=== PATIENT | female | born 1970 | race Two or more races ===

== ENCOUNTER 2022-12-25 00:18 | Emergency (ER) | payer OTHER ==
[~2022-12-25] VITALS: Ht 167.6 cm; Wt 70.8 kg
[2022-12-25] MEDS ORDERED: PLAQUENIL (00:58)
[2022-12-25] MEDS ORDERED: [UNRECOGNIZED DRUG - OTHER] (00:58)
[2022-12-25 01:40] LABS: URINE APPEARANCE Clear; URINE BILIRRUBIN Small (NEGATIVE); URINE BLOOD Large; URINE COLOR Orange; URINE GLUCOSE Negative (NEGATIVE); URINE LEUKOCYTE Moderate; URINE NITRATE Positive; URINE PROTEIN 30 (NEGATIVE)
[2022-12-25 01:43] LABS: URINE BACTERIA 293.4 uL (0.0-1933); URINE EPITHELIAL CELLS 30.9 uL (0.0-38.8); URINE RBC 61.9 uL (0.0-20.8); URINE WBC 426.5 uL (0.0-23.2)
[2022-12-25 03:18] LABS: HEMATOCRIT 41.7 % (36.0-45.00); HEMOGLOBIN 14.2 g/dL (12.0-15.00); MEAN CELL VOLUME 89.9 fL (80.00-100.00); MEAN CORPUSCULAR HEMOGLOBIN 30.5 pg (27.00-32.0); PLATELET COUNT 251 K/uL (150-450); RED BLOOD COUNT 4.64 M/uL (4.00-6.00); RED CELL DISTRIBUTION WIDTH 13.5 % (11.5-14.5)
[2022-12-25] MEDS ORDERED: ONDANSETRON ODT4 MG PO (04:36)
[2022-12-25] MEDS ORDERED: PEPCID40 MG PO (04:36)
[2022-12-25] MEDS ORDERED: CIPRO500 MG PO (04:38)
== END 2022-12-25 04:46 ==
LOC: ER 00:18
PROVIDERS: General Practice
DX: N39.0 Urinary tract infection, site not specified (principal)